=== PATIENT | male | born 1995 | race African-American/Black ===

== ENCOUNTER 2019-03-04 01:18 | Emergency (ER) | payer MEDICAID ==
[~2019-03-04] VITALS: Ht 182.9 cm; Wt 123.0 kg
[2019-03-04 01:30] VITALS: BP 137/72
[2019-03-04 03:05] LABS: CLARITY URINE CLEAR (CLEAR); COLOR URINE YELLOW (YELLOW); KETONES URINE NEGATIVE (NEGATIVE); LEUKOCYTE ESTERASE URINE TRACE (NEGATIVE); NITRITE URINE NEGATIVE (NEGATIVE); OCCULT BLOOD URINE NEGATIVE (NEGATIVE); PROTEIN URINE NEGATIVE (NEGATIVE); SPECIFIC GRAVITY URINE 1.014 (1.005-1.030)
[2019-03-05 04:12] LABS: HIV SCREEN 4G Non Reactive (Non Reactive)
== END 2019-03-04 03:34 | disposition home or self-care (01) ==
LOC: ER 01:18
DX: N48.1 Balanitis (principal); M79.644 Pain in right finger(s); R23.8 Other skin changes; F12.10 Cannabis abuse, uncomplicated; F17.200 Nicotine dependence, unspecified, uncomplicated
CPT/HCPCS: 81003; 86592; 87389; 99283